=== PATIENT | female | born 1990 | race Two or more races ===

== ENCOUNTER 2016-10-25 00:53 | Emergency (ER) | payer MEDICAID ==
[~2016-10-25] VITALS: Ht 167.6 cm; Wt 66.7 kg
[2016-10-25 01:53] LABS: Basophils # (auto) 0.1 uL; Basophils % (auto) 0.6 % (0.0-2.0); Eosinophils # (auto) 0.1 uL; Hematocrit 42.2 % (36.0-46.0); Hemoglobin 13.8 g/dL (12.2-16.2); Lymphocytes # (auto) 4.1 uL; Lymphocytes % (auto) 37.9 % (10.0-50.0); Mean Corpuscular Hemoglobin 29.6 pg (28.0-32.0); Mean Corpuscular Hgb Conc. 32.6 g/dL (32.0-36.0); Mean Corpuscular Volume 90.8 fL (80.0-100.0); Mean Platelet Volume 8.5 fL (7.4-10.4); Monocytes # (auto) 0.7 uL; Monocytes % (auto) 6.1 % (0.0-12.0); Neutrophils # (auto) 5.8 uL; Neutrophils % (auto) 54.4 % (37.0-80.0); Platelet Count (auto) 408 10^3/uL (140-450); Red Cell Distribution Width 14.1 % (11.6-16.0); White Blood Cell 10.7 10^3/uL (4.4-10.8)
[2016-10-25 02:07] LABS: Albumin 3.9 g/dL (3.4-5.0); BUN/Creatinine Ratio 22.1; Calcium 8.5 mg/dL (8.5-10.1); Potassium 3.8 mmol/L (3.5-5.1)
[2016-10-25 02:10] LABS: Bilirubin, Total 0.2 mg/dL (0.2-1.0); Total Protein 8.1 g/dL (6.4-8.2)
[2016-10-25 07:58] LABS: Urine Bilirubin Negative (Negative); Urine Blood Negative /uL (Negative); Urine Color Yellow (Yellow); Urine Glucose Normal (Normal); Urine Ketone Negative (Negative); Urine Nitrite Negative (Negative); Urine RBC <1 /hpf (0 - 4); Urine Squamous Epithelial Cell FEW /hpf (<5); Urine Urobilinogen Normal (Negative)
[2016-10-25 12:02] VITALS: BP 139/89
== END 2016-10-25 12:20 | disposition home or self-care (01) ==
LOC: ER 00:53
DX: B37.3 Candidiasis of vulva and vagina (principal); R10.2 Pelvic and perineal pain; R62.50 Unspecified lack of expected normal physiological development in childhood
CPT/HCPCS: 36415; 80053; 81001; 82150; 83690; 84702; 85025; 94761; 99284; J7030

== ENCOUNTER 2018-02-11 00:41 | Emergency (ER) | payer MEDICAID ==
[~2018-02-11] VITALS: Ht 157.5 cm; Wt 69.2 kg
[2018-02-11 00:59] VITALS: BP 120/90
== END 2018-02-11 04:49 | disposition left against medical advice (07) ==
LOC: ER 00:45
DX: K59.00 Constipation, unspecified (principal); Z53.21 Procedure and treatment not carried out due to patient leaving prior to being seen by health care provider
CPT/HCPCS: 74176

== ENCOUNTER 2018-08-25 07:53 | Emergency (ER) | payer MEDICAID ==
[~2018-08-25] VITALS: Ht 152.4 cm; Wt 68.0 kg
[2018-08-25 09:17] VITALS: BP 127/85
[2018-08-25] MEDS ORDERED: cefTRIAXone SOD 1,000 MG VL IM ONE (09:45)
== END 2018-08-25 10:16 | disposition home or self-care (01) ==
LOC: ER 07:53
DX: J02.9 Acute pharyngitis, unspecified (principal); R05 Cough; R09.81 Nasal congestion
CPT/HCPCS: 71046; 96372; 99283; J0696